=== PATIENT | male | born 1950 | race Two or more races ===

== ENCOUNTER 2024-07-02 17:11 | Emergency (ER) | payer OTHER ==
[~2024-07-02] VITALS: Ht 165.1 cm; Wt 72.4 kg
[2024-07-02 20:35] VITALS: BP 148/90; PULSE 76; RESP 20; O2SAT 98
== END 2024-07-02 20:40 | disposition home or self-care (01) ==
LOC: ER 17:26
DX: S00.81XA Abrasion of other part of head, initial encounter (principal); Z79.01 Long term (current) use of anticoagulants; W06.XXXA Fall from bed, initial encounter; Y93.01 Activity, walking, marching and hiking; Y92.89 Other specified places as the place of occurrence of the external cause; Y99.8 Other external cause status
CPT/HCPCS: 70450; 72125